=== PATIENT | female | born 1995 | race Caucasian/White ===

== ENCOUNTER 2023-08-06 10:14 | Outpatient (CLI) | payer BC, SELFPAY ==
--- NOTE | 2023-08-06 10:15 | CRLHL7_ITS ---
For Patients: As a result of the Cures Act, medical imaging exams and procedure reports are released immediately into your electronic medical record. You may view this report before your referring provider. If you have questions, please contact your health care provider. INDICATION: Bleeding in early , evaluate for viability COMPARISON: None TECHNIQUE: Packer-scale and color Doppler of the uterus and ovaries from a transvaginal approach. Transvaginal ultrasound was necessary for better visualization of the uterine contents. FINDINGS: Last menstrual period: 06/10/2023 Estimated gestational age: 8 weeks 1 day Normal uterine size and position. No intrauterine gestational sac. No endometrial heterogeneity or thickening. No endometrial mass or endometrial vascularity. Endometrium measures 7 millimeters in double thickness. No ovarian or adnexal mass or cyst. The right ovary measures 3.9 x 2.6 x 2.5 centimeters and has a small corpus luteal cyst. The left ovary measures 3.6 x 1.7 x 1.9 centimeters. No pelvic free fluid. IMPRESSION: No findings of an intrauterine or ectopic gestation. No findings of retained products of conception. Correlate with beta HCG and follow-up accordingly. Dictated by Yani Hess MD @ 08/06/2023 10:54:12 AM (Electronically Signed)
== END 2023-08-06 10:15 | disposition home or self-care (01) ==
PROVIDERS: PCP Registered Nurse; Visit Provider Obstetrics & Gynecology
DX: O20.9 Hemorrhage in early pregnancy, unspecified (principal); Z3A.08 8 weeks gestation of pregnancy
CPT/HCPCS: 76817; 84702; 86850; 86900; 86901

== ENCOUNTER 2023-08-13 08:34 | Outpatient (CLI) | payer BC, SELFPAY | END 2023-08-13 08:35 | disposition home or self-care (01) | LOC: NFLDREF 08-16 08:31 | PROVIDERS: PCP Registered Nurse; Referring Provider Registered Nurse; Visit Provider Registered Nurse | DX: O20.0 Threatened abortion (principal) | CPT/HCPCS: 84702 ==

== ENCOUNTER 2023-11-19 09:56 | Outpatient (CLI) | payer OTHER, SELFPAY | END 2023-11-19 09:57 | disposition home or self-care (01) | LOC: FRMREF 09:57 | PROVIDERS: PCP Registered Nurse; Visit Provider Obstetrics & Gynecology | DX: O20.9 Hemorrhage in early pregnancy, unspecified (principal) | CPT/HCPCS: 84702 ==

== ENCOUNTER 2023-11-21 08:13 | Outpatient (CLI) | payer OTHER, SELFPAY | END 2023-11-21 08:14 | disposition home or self-care (01) | LOC: NFLDREF 11-22 08:44 | PROVIDERS: PCP Registered Nurse; Referring Provider Registered Nurse; Visit Provider Obstetrics & Gynecology | DX: O20.9 Hemorrhage in early pregnancy, unspecified (principal) | CPT/HCPCS: 84702 ==

== ENCOUNTER 2023-12-17 10:30 | Outpatient (CLI) | payer OTHER, SELFPAY | END 2023-12-17 10:31 | disposition home or self-care (01) | PROVIDERS: Visit Provider Physician Assistant | DX: N96 Recurrent pregnancy loss (principal) | CPT/HCPCS: 83001; 84702; 85520; 85525; 85598; 85610; 85613; 85670; 86147 ==

== ENCOUNTER 2024-01-17 08:00 | Outpatient (CLI) | payer OTHER, SELFPAY | END 2024-01-17 08:01 | disposition home or self-care (01) | LOC: NFLDREF 14:34 | PROVIDERS: Visit Provider Physician Assistant | DX: N96 Recurrent pregnancy loss (principal) | CPT/HCPCS: 84443 ==

== ENCOUNTER 2024-04-10 08:09 | Outpatient (CLI) | payer OTHER, SELFPAY ==
--- NOTE | 2024-04-10 08:15 | CRLHL7_ITS ---
For Patients: As a result of the Century Cures Act, medical imaging exams and procedure reports are released immediately into your electronic medical record. You may view this report before your referring provider. If you have questions, please contact your health care provider. INDICATION: First trimester scan, establish dates. TECHNIQUE: Real-time guadarrama-scale imaging of the pelvis was performed. FINDINGS: Sonographic imaging demonstrates a single living intrauterine gestation. The embryo demonstrates a regular cardiac rate measuring 152 beats per minute. The embryo`s crown-rump length measurement of 1.4 cm corresponds to a gestational age of 7 weeks 5 days with a sonographic due date of 11/22/2024 . There is a normal-appearing yolk sac. Small subchorionic hemorrhage measuring 0.9 x 0.8 x 0.6 centimeters. IMPRESSION: Normal first trimester OB ultrasound exam. Gestational age calculated at 7 weeks 5 days with a sonographic due date of 11/22/2024. Small subchorionic hemorrhage measuring 0.9 cm. Dictated by Anna Tarango MD @ 04/11/2024 9:13:16 AM (Electronically Signed)
== END 2024-04-10 08:10 | disposition home or self-care (01) ==
LOC: US 08:12
PROVIDERS: Visit Provider Physician Assistant
DX: Z34.91 Encounter for supervision of normal pregnancy, unspecified, first trimester (principal); O20.9 Hemorrhage in early pregnancy, unspecified; Z3A.01 Less than 8 weeks gestation of pregnancy
CPT/HCPCS: 76817

== ENCOUNTER 2024-04-10 09:24 | Outpatient (CLI) | payer OTHER, SELFPAY ==
[2024-04-10 13:29] LABS: Chlamydia DNA Amplified* NOT DETECTED (No Detected); GC DNA Amplified* NOT DETECTED (No Detected)
== END 2024-04-10 09:25 | disposition home or self-care (01) ==
PROVIDERS: Visit Provider Physician Assistant
DX: Z34.91 Encounter for supervision of normal pregnancy, unspecified, first trimester (principal); Z3A.08 8 weeks gestation of pregnancy
CPT/HCPCS: 83020; 83021; 84443; 85660; 86592; 86703; 86704; 86706; 86762; 86787; 86803; 86850; 86900; 86901; 87086; 87340; 87491; 87591

== ENCOUNTER 2024-06-05 09:08 | Outpatient (CLI) | payer OTHER, SELFPAY | END 2024-06-05 09:09 | disposition home or self-care (01) | LOC: NFLDREF 09:10 | PROVIDERS: Visit Provider Advanced Practice Midwife | DX: Z34.92 Encounter for supervision of normal pregnancy, unspecified, second trimester (principal); Z3A.15 15 weeks gestation of pregnancy | CPT/HCPCS: 84443 ==

== ENCOUNTER 2024-07-03 08:58 | Outpatient (CLI) | payer OTHER, SELFPAY ==
--- NOTE | 2024-07-03 09:15 | CRLHL7_ITS ---
For Patients: As a result of the Century Cures Act, medical imaging exams and procedure reports are released immediately into your electronic medical record. You may view this report before your referring provider. If you have questions, please contact your health care provider. OB ULTRASOUND SURVEY RAFAT by US: 11/22/2024. GA: 19 w, 5 d. INDICATION: anatomy. TECHNIQUE: Real time grayscale imaging of the fetus was performed. Evaluate anatomy. Transabdominal. position: Vertex. Cervix: Visualized. Technique: Transabdominal. Length of closed cervix: 4.3 cm. Placenta/cord: Anterior. Technique: Transabdominal. Placenta tip to internal OS: 6.7 cm. Umbilical Cord: 3-vessel cord. Placenta insertion: Central. Amniotic Fluid: 3.5cm SDP (greater than/equal to: 2- less than 8 cm). SURVEY: Observed Structures. Calvarium/Spine: Cerebellum: 2.0 cm, 20 w 5 d. Cisterna Magna: 3.1 mm. Nuchal Fold: 3.9 mm. Lateral Ventricle: 5.2 mm. CSP: Yes. Midline Falx: Yes. Choroid Plexus: Yes. Spine: Yes. Abdomen: Stomach: Yes. Abd Cord Insertion: Yes. Urinary Bladder: Yes. Kidneys: Yes. Diaphragm: Yes. Face: Nose/lips: Yes. Orbital view: Yes. Profile: Yes. Limbs: Upper Extremities: Yes. Lower Extremities: Yes. Hands: Yes. Feet: Yes. Vascular: 4-Chamber Heart: Yes. LVOT: Yes. RVOT: Yes. 3VV: Yes. 3VTV: Yes. BPD: 4.5 cm. 19 w, 5 d, 48.0 percent. HC: 17.4 cm. 19 w, 6 d, 52.7 percent. AC: 15.0 cm. 20 w, 2 d, 62.6 percent. FL: 3.1 cm. 19 w, 5 d, 41.2 percent. FL/AC ratio: 20.81 percent. HC/AC ratio: 1.16. heart rate: 139 bpm. age by this US: 20 w, 0 d. RAFAT by this US: 11/20/2024. EFW: 54491 g. Weight: 0 lbs, 11 oz. Percentile by RAFAT: 60.3 percent. IMPRESSION: 1. Concordance of clinical and sonographic dating. 2. Normal anatomic survey. Bright Lundy M.D. Diagnostic Radiologist [email or web address] ODALYS/[email or web address]/Dictated by: Bright Lundy MD @ 07/03/2024 12:15:00 PM (Electronically Signed)
== END 2024-07-03 08:59 | disposition home or self-care (01) ==
LOC: US 08:59
PROVIDERS: Visit Provider Advanced Practice Midwife
DX: Z34.92 Encounter for supervision of normal pregnancy, unspecified, second trimester (principal); Z3A.19 19 weeks gestation of pregnancy
CPT/HCPCS: 76805

== ENCOUNTER 2024-07-21 11:00 | Outpatient (RCR) | payer OTHER, SELFPAY | END 2024-11-18 23:59 | disposition home or self-care (01) | PROVIDERS: Visit Provider Advanced Practice Midwife | DX: O26.892 Other specified pregnancy related conditions, second trimester (principal); M54.50 Low back pain, unspecified; R10.2 Pelvic and perineal pain; Z51.89 Encounter for other specified aftercare | CPT/HCPCS: 97112; 97140; 97161 ==

== ENCOUNTER 2024-08-23 19:19 | Outpatient (CLI) | payer OTHER, SELFPAY ==
[2024-08-23 19:39] VITALS: BP 107/63; PULSE 96; RESP 16; TEMP 37.2
[2024-08-23 20:11] LABS: Appearance Urine Clear (Clear)
[2024-08-23 20:47] LABS: Trichomonas No Trichomonas Seen (None Seen)
--- NOTE | 2024-08-23 21:23 | PM.OBLDTN ---
OB - Triage/Final Diagnosis Visit Information Time Seen by Provider: 21:15 Date of evaluation: 08/23/24 Narrative: The patient is a 29 year old 3 para 0 at 27.0 weeks gestation by first trimester ultrasound, who presents with an episode of red bleeding while wiping today. She did not have any gush of blood only streaks of blood noted on toilet paper. She reported some frequency with urination and occasional cramping sensations but does not report anything regular or increasing in intensity. She reports active movement. A UA and wet prep were collected and are negative for infection, there are trace ketones in her urine. She reports she spent the day at her parents campsite did not do anything strenuous, denies abdominal trauma or falls. She denies recent intercourse, reports about a week ago last. She has a history of miscarriage which is making her feel more anxious about the bleeding. A speculum exam was done with informed consent, there was no blood seen in the vagina, cervix appears closed without any evidence of polyps or sores. Normal appearing external female genitalia, skin intact. A cervical exam was then done and cervix is long thick and closed. Her blood type is O+. EFM shows Category I tracing without contractions. Abdomen palpates soft. She states she has her next appointment on Saturday, she was instructed to keep that appointment. Precautions reviewed for decreased movement, increasing abdominal pain, contractions, pressure, or return of bleeding should any of this occur she should return for evaluation. Reason for evaluation: other Evaluation Cervical dilation (cm): 0 Cervical effacement (%): 0 Laboratory results: Laboratory Tests 08/23/24 08/23/24 Range/Units 19:55 19:40 Urine Color Yellow (Yellow) Urine Appearance Clear (Clear) Urine pH 6.0 (5.0-8.5) Ur Specific [place] <= 1.005 (1.000-1.030) Urine Protein Negative (Negative) Urine Glucose (UA) Negative (Negative) Urine Ketones Trace A (Negative) Urine Blood Negative (Negative) Urine Nitrite Negative (Negative) Urine Bilirubin Negative (Negative) Urine Urobilinogen 0.2 (0.2-1.0) Ur Leukocyte Esterase Negative (Negative) Vaginal Trichomonas No Trichomonas Seen (None Seen) Vaginal Yeast No Yeast Seen (None Seen) Vaginal Clue Cells No Clue Cells Seen (None Seen) Vital signs: Vital Signs - 24 hr 08/23/24 19:39 08/23/24 19:39 Temperature 98.9 F Pulse Rate 96 Respiratory Rate 16 Blood Pressure 107/63 Fetus (Single) Heart Rate Baseline: 140 Canteen Manager Variability: Moderate (6-25) Monitor Accelerations: Present Monitor Decelerations: None Station: -4 Final Diagnosis (1) Vaginal bleeding in : Status: Acute
--- NOTE | 2024-08-23 21:35 | PC.OBNST ---
NST Note NST Note Start: 08/23/24 19:23 Freq: ONCE Status: Active Protocol: Document 08/23/24 21:34 CLIFF (Rec: 08/23/24 21:35 CLIFF [id number]) NST Note 3 Para (# of births) 0 EDC 11/22/24 Gestational Age In 27 Weeks & 0 Days Weeks & Days Patient Presented Other with Complaint(s) of Other Complaints Bleeding Reactive Yes Appropriate for Yes Gestational Age MYRON Nichole RN Date 08/23/24 Reactive Yes Appropriate for Yes Gestational Age MYRON Lizarraga CNM Date 08/23/24 OB NST charge Yes Complete NST Note Yes via Write Note The provider's electronic signature indicates the NST is reactive/appropriate for gestational age. *Note to provider: If an addendum is required, open the patient's chart and click on the note under the Nurse/Allied Health tab.
== END 2024-08-23 21:35 | disposition home or self-care (01) ==
LOC: OB OUT 19:21 → OB 19:25
PROVIDERS: Visit Provider Advanced Practice Midwife
DX: O26.92 Pregnancy related conditions, unspecified, second trimester (principal); Z3A.27 27 weeks gestation of pregnancy
CPT/HCPCS: 59025; 81003; 87210; G0463

== ENCOUNTER 2024-08-28 13:30 | Outpatient (CLI) | payer OTHER, SELFPAY | END 2024-08-28 13:31 | disposition home or self-care (01) | LOC: NFLDREF 09-02 01:53 | PROVIDERS: Visit Provider Advanced Practice Midwife | DX: Z34.82 Encounter for supervision of other normal pregnancy, second trimester (principal); E03.8 Other specified hypothyroidism | CPT/HCPCS: 84443; 86592 ==

== ENCOUNTER 2024-10-23 13:04 | Outpatient (CLI) | payer OTHER, SELFPAY ==
[2024-10-24 14:17] LABS: Strep B DNA Probe Negative (Negative)
[2024-10-24 14:38] LABS: Strep B Susceptibility Needed? No
== END 2024-10-23 13:05 | disposition home or self-care (01) ==
LOC: NFLDREF 13:04
PROVIDERS: Visit Provider Advanced Practice Midwife
DX: Z34.93 Encounter for supervision of normal pregnancy, unspecified, third trimester (principal); Z3A.35 35 weeks gestation of pregnancy
CPT/HCPCS: 87081; 87653

== ENCOUNTER 2024-11-27 10:41 | Outpatient (CLI) | payer OTHER, SELFPAY ==
--- NOTE | 2024-11-27 10:45 | CRLHL7_ITS ---
For Patients: As a result of the Cures Act, medical imaging exams and procedure reports are released immediately into your electronic medical record. You may view this report before your referring provider. If you have questions, please contact your health care provider. OB ULTRASOUND RAFAT by US: 11/22/2024. GA: 40 w, 5 d. Single. Comparison: anatomy 07/03/2024. INDICATION: BIOPHYSICAL PROFILE SCORE for post-dates. TECHNIQUE: Real time grayscale imaging of the fetus was performed. Transabdominal. CERVIX: Not visualized. POSITIONING: Vertex. AMNIOTIC FLUID: 5.5 cm. SDP (N: greater than 2 x 1 cm) BIOPHYSICAL PROFILE: 2: Gross body movements 2: tone 2: Respiratory activity 2: Amniotic fluid SDP (N: greater than 2 x 1 cm) 8/8: Total score PLACENTA: Technique: Transabdominal. PLACENTA POSITION: Anterior. DOPPLER: heart rate: 147 bpm. IMPRESSION: Normal biophysical profile score 8/8. Bright Lundy M.D. Diagnostic Radiologist [email or web address] ODALYS/[email or web address]/Dictated by: Bright Lundy MD @ 11/27/2024 12:00:00 PM (Electronically Signed)
== END 2024-11-27 10:42 | disposition home or self-care (01) ==
LOC: US 10:42
PROVIDERS: Visit Provider Advanced Practice Midwife
DX: O48.0 Post-term pregnancy (principal); Z3A.40 40 weeks gestation of pregnancy; E03.8 Other specified hypothyroidism; O72.1 Other immediate postpartum hemorrhage; R93.89 Abnormal findings on diagnostic imaging of other specified body structures
CPT/HCPCS: 76819

== ENCOUNTER 2024-11-27 13:10 | Outpatient (CLI) | payer OTHER, SELFPAY | END 2024-11-27 13:11 | disposition home or self-care (01) | LOC: NFLDREF 11-30 18:25 | PROVIDERS: Visit Provider Advanced Practice Midwife | DX: Z34.93 Encounter for supervision of normal pregnancy, unspecified, third trimester (principal); O26.899 Other specified pregnancy related conditions, unspecified trimester; N89.8 Other specified noninflammatory disorders of vagina; Z34.83 Encounter for supervision of other normal pregnancy, third trimester; O48.0 Post-term pregnancy; Z3A.40 40 weeks gestation of pregnancy; E03.8 Other specified hypothyroidism | CPT/HCPCS: 87081; 87653 ==

== ENCOUNTER 2024-11-27 23:14 | Inpatient (IN) | payer OTHER, SELFPAY ==
[2024-11-27 22:17] VITALS: BP 128/78; PULSE 75; PULSE 78; O2SAT 99
[2024-11-27 22:18] VITALS: RESP 18; TEMP 36.5
[2024-11-27 23:31] VITALS: BMI 32.4
[2024-11-28] VITALS (92 sets, daily range): BP systolic 97–134; BP diastolic 51–83; PULSE 74–193; RESP 15–22; TEMP 36.4–37.2; O2SAT 94–100
[2024-11-28] MEDS: LACTATED RINGERS 1000 ML 1,000 ML IV ×2 (01:52→09:32)
--- NOTE | 2024-11-28 02:00 | P.LDBA_ITS ---
Subjective History of Present Illness Date Seen: 11/28/24 Narrative: Jazmin is being admitted to Labor and Delivery for labor with SROM of clear fluid on arrival to unit. She is a 29 year old at 40.6 weeks gestation. Her full history and physical was dictated by Liyah Maria CNM on 10/30/2024. Please see this for details. Had membrane sweep in clinic today and has been contraction since that time with slow progression to regular frequent contractions. Specific Issues/Plans Partner: Minesh H&P: completed on 10/30/2024 by Liyah Maria CNM # history recurrent loss x2 Negative workup # Subclinical hypothyroid, on levothyroxine for fertility. TSH in September had been 3.31. Initiated levothyroxine 25 mcg NOB TSH: 1.74 2nd Trimester TSH: 1.78 3rd trimester TSH: 1.230 # obesity, BMI 30.2. Hemoglobin A1c:4.8% Aspirin 81 mg # uncle with muscular dystrophy #generalized rash-assume allergic, triam given; improved after eliminating dairy in diet Imaging: Vaccinations: COVID: Discussed, declined Flu: Discussed, declined Tdap: 09/11/24 RSV: [] 32 week mental health: [] Last pap: 10/14/23, NIL/+HPV other. Repeat Pap PP Comments: ? OB - Problem Based A/P Additional Plan (1) 40 weeks gestation of : Status: Acute (2) Pain during labor: Status: Acute Plan Assessment:?? at 40.6 weeks gestation?? GBS negative? Patient is coping well with challenges of labor.?? Labor type:Spontaneous, Early labor? Category 1 FHR pattern.? complicated by: # history recurrent loss x2 # Subclinical hypothyroid, on levothyroxine for fertility. # obesity, BMI 30.2 # family history of muscular dystrophy(uncle) Plan:?? * ?Admit to L & D? * IV access: SL * Monitoring per policy: intermittent?until epidural placement * Candidate for analgesia of choice.? Planning epidural for pain management * Expectant management at this time ? * Patient encouraged to reposition and ambulate to promote physiologic labor and . * Anticipate Delivery/Labor/Induction Plan Plan: expectant management OB Exam Physical Exam Vital signs: Temp Pulse Resp BP Pulse Ox 98.2 F 89 18 108/68 99 11/28/24 01:48 11/28/24 00:24 11/28/24 00:24 11/28/24 00:24 11/27/24 22:17 Narrative: Vitals Reviewed Constitutional:? Alert and oriented x3 HEENT:? Normocephalic, atraumatic Neck:? Supple Lungs:? Clear to auscultation bilaterally Heart:? Regular rate and rhythm, no murmur, rub or gallop Abdomen:? Soft, nontender, and gravid. Vertex by Dave's, confirmed with cervical exam per RN. Was vertex in clinic today with exam. Extremities:? No edema or erythema Cervix: 3 cm/60%/-1 station/vertex by RN NST: 120 bpm/mod variability/+accelerations/-decelerations/ mod contractions, now palpate strong Detailed Labor and Delivery Exam Patient Gravid: yes
[2024-11-28 02:02] LABS: Hematocrit* 45.2 % (33.0-51.0); Hemoglobin* 15.5 gm/dL (12.0-16.0); Immature Granulocytes Pct Auto 0.9 %; Mean Corpuscular HGB Conc 34 gm/dL (32-36); Mean Corpuscular Hemoglobin 30 pg (26-34); Mean Corpuscular Volume 89 fL (80-100); RDW Coefficient of Variation % 13.3 % (11.5-15.5); Red Blood Count* 5.11 m/uL (4.00-5.20); White Blood Count* 19.38 K/uL (4.50-11.00)
[2024-11-28 02:09] LABS: Immature Granulocytes Abs Auto 0.20 K/uL (0.00-0.30); Lymphocytes Absolute Auto 1.30 K/uL (0.90-2.90)
[2024-11-28 02:10] LABS: Slide Review Reflex No
--- NOTE | 2024-11-28 02:11 | PM.OBPNL ---
Subjective Date Seen: 11/28/24 Narrative: ?Jazmin is coping well with labor pain/contractions. ?Minesh is with her for support. ?She is using breathing, relaxation and the birthing ball for comfort and pain management at this time. She has requested an epidural for pain managment and is now comfortable with this in place. ? Objective Exam: VSS, afebrile General Appearance:? Calm, cooperative. ?No acute distress. ? Psychiatric Exam: Alert and oriented, appropriate affect Abdomen: Gravid Ctx: ?Q 2-4 min apart. ? ?Moderate ? FHTs: ?Baseline: 140. ? ? Variability: moderate. ?Accels: -. ? ?Decels: ?-. SVE: 360/-1 Membranes: ?SROM clear fluid at 2230 on 11/27/24 Vital Signs: Last Vital Signs Temp 98.2 F 11/28/24 01:48 Pulse 89 11/28/24 00:24 Resp 18 11/28/24 00:24 BP 108/68 11/28/24 00:24 Pulse Ox 99 11/27/24 22:17 Plan Plan: Assessment:?? at 40.6 weeks gestation?? GBS neg Patient is coping well with challenges of labor.?? Labor type: Spontaneous, Early labor? Category 2 FHR pattern.? complicated by: # history recurrent loss x2 # Subclinical hypothyroid, on levothyroxine for fertility. # obesity, BMI 30.2 # family history of muscular dystrophy(uncle) Labor complicated by: none? Plan:?? Expectant management Continue with routine intrapartum cares as ordered.?? Patient encouraged to move and change positions to promote physiologic labor and .??RN to assist with position changes as needed. Epidural infusing per anesthesia Anticipate progress to NVD. ?
[2024-11-28] MEDS: BUPIVACAINE 0.25% PF 10 ML 10 ML ML EPIDURAL (02:36)
[2024-11-28] MEDS: LACTATED RINGERS 1000 ML 1,000 ML 125 ML IV ×3 (02:36→14:32)
[2024-11-28] MEDS: ROPIVACAINE 0.2% 100 ml 100 ML 12 MG EPIDURAL ×2 (02:37→17:42)
--- NOTE | 2024-11-28 02:57 | PM.ANBPRC ---
[facility] Medical History Acromioclavicular joint separation ?S43.109A - Unspecified dislocation of unspecified acromioclavicular joint, initial encounter (ICD-10) Tibia fracture ?S82.209A - Unspecified fracture of shaft of unspecified tibia, initial encounter for closed fracture (ICD-10) Concussion ?S06.0XAA - Concussion with loss of consciousness status unknown, initial encounter (ICD-10) Family History Maternal Grandmother Breast cancer Maternal Grandfather Colon cancer Father Liver cancer High blood pressure Mother High cholesterol Social History Narrative: SOCIAL HISTORY: Occupation: Employed in [employer]. Marital status: . Gnosticist/cultural needs: no. Chemical or radiation exposure: no. Pre- tobacco use: no. Pre- alcohol use: no. Current tobacco use: no. Current alcohol use: no. Recreational drug use: no. Dietary restrictions: no. Blood transfusion acceptable in an emergency: yes. PSYCHOSOCIAL HISTORY: History of depression or currently depressed: no. Current physical, emotional, or sexual mistreatment: no. Problems that will make it hard to make it to appointments: no. What is your current living situation?: I presently have a place to live Problems where you live: no known problems In the past 12 months, utilities in danger of being shut off: no In past 12 months, lack of transportation kept you from medical appts, meetings, work, or getting things needed for daily living: no In the past 12 mos, have been you worried that your food would run out before you had money to buy more?: never true In the past 12 mos, the food you bought just didn't last and you didn't have money to buy more?: never true Smoking Status: Never smoker How often does anyone, including family, friends and others, physically hurt you: never How often does anyone, including family, friends and others, insult or talk down to you: never How often does anyone, including family, friends and others, threaten you with harm: never How often does anyone, including family, friends and others, scream or curse at you: never Meds Home Medications and Allergies Home Medications ?Medication ?Instructions ?Recorded ?Confirmed ?Type docosahexaenoic acid 200 mg mg PO 08/06/23 11/27/24 History capsule ( DHA) calcium-magnesium 750 mg-465 mg tab PO 04/10/24 11/27/24 History tablet cholecalciferol (vitamin D3) 125 125 mcg PO QDAY 04/10/24 11/27/24 History mcg (5,000 unit) capsule omega-3 fatty acids 1,250 mg 1,250 mg PO QDAY 04/10/24 11/27/24 History capsule aspirin 81 mg tablet,delayed 81 mg PO QDAY 06/05/24 11/27/24 History release levothyroxine 25 mcg tablet 25 mcg PO QDAY #90 tabs 08/31/24 11/27/24 Rx (Synthroid) magnesium glycinate 100 mg (as 100 mg PO QDAY 09/25/24 11/27/24 History glycinate) tablet triamcinolone acetonide 0.1 % 1 applic topical BID PRN 11/13/24 11/27/24 History topical cream Allergies Allergy/AdvReac Type Severity Reaction Status Date / Time bacitracin (From Neosporin Allergy Intermediate Blister Verified 11/27/24 12:52 ([id number])) neomycin (From Neosporin Allergy Intermediate Blister Verified 11/27/24 12:52 ([id number])) polymyxin B (From Neosporin Allergy Intermediate Blister Verified 11/27/24 12:52 ([id number])) Milk Containing Products AdvReac Severe Rash Verified 11/27/24 12:52 (Dairy) berries Allergy Severe Anaphylaxis Uncoded 11/27/24 12:52 Results Labs Labs: Laboratory Results - last 24 hr 11/27/24 01:50 WBC 19.38 H RBC 5.11 Hgb 15.5 Hct 45.2 MCV 89 MCH 30 MCHC 34 RDW Coeff of Sumi 13.3 Plt Count 173 Neut % (Auto) 88.8 H Lymph % (Auto) 6.5 L Story % (Auto) 3.6 Eos % (Auto) 0.1 Baso % (Auto) 0.1 Neut # (Auto) 17.20 H Lymph # (Auto) 1.30 Story # (Auto) 0.70 Eos # (Auto) 0.00 Baso # (Auto) 0.00 Abs Immat Gran (auto) 0.20 Imm/Tot Granulo (auto) 0.9 Vital Signs Vital Signs: Last Vital Signs Temp 98.2 F 11/28/24 01:48 Pulse 95 11/28/24 02:56 Resp 18 11/28/24 00:24 BP 118/60 11/28/24 02:56 Pulse Ox 99 11/28/24 02:53 Weight: 88.451 kg Height: 165.1 cm Anesthesia Procedures Epidural Insertion Patient Location: OB Start Time: 02:00 Stop Time: 03:00 Start Date: 11/28/24 Stop Date: 11/28/24 Reason for Block: procedure for pain Patient Position: sitting Performed By: Jed Coulter Preanesthetic Checklist: IV checked, risks and benefits discussed, surgical consent, monitors and equipment checked, pre-op evaluation, timeout performed and anesthesia consent Prep: chlorhexidine gluconate Monitoring: blood pressure monitoring, continuous pulse oximetry and heart rate Approach: midline Vertebral Space: lumbar (1-5) Epidural Technique: AMOR saline Needle Type: Tuohy needle Injection Technique: continuous catheter Needle gauge: 17 Needle Length (cm): 10 cm Needle Insertion Depth (cm): 6 Catheter Gauge: 19 Catheter Type: multi-orifice Catheter at skin depth (cm): 12 Test Dose Result: negative and lidocaine 1.5% with epinephrine 1 to 200,000
[2024-11-28] MEDS: PHENYLEPHRINE 100 MCG/ML SYRINGE IVP (06:50)
[2024-11-28] MEDS: ePHEDrine sulfate 5 MG/ML inj 10 MG IVP (07:08)
--- NOTE | 2024-11-28 08:27 | PM.OBPNL ---
Subjective Date Seen: 12/23/24 Narrative: Jazmin is a 29 yo at 40 6/7 weeks admitted last evening for KIRK with SROM of clear fluid on arrival to unit at 2200. She is utilizing an epidural for pain relief and has been able to rest some this morning. Her contractions since epidural placement have spaced out. Specific Issues/Plans Partner: Minesh H&P: completed on 10/30/2024 by Liyah Maria CNM # history recurrent loss x2 Negative workup # Subclinical hypothyroid, on levothyroxine for fertility. TSH in September had been 3.31. Initiated levothyroxine 25 mcg NOB TSH: 1.74 2nd Trimester TSH: 1.78 3rd trimester TSH: 1.230 # obesity, BMI 30.2. Hemoglobin A1c:4.8% Aspirin 81 mg # uncle with muscular dystrophy #generalized rash-assume allergic, triam given; improved after eliminating dairy in diet Objective Exam: Objective: Constitutional: Alert and oriented x3, no distress, coping well Vital signs stable, see nurse documentation Abdomen: gravid, contractions palpate moderate with contractions and soft between Cervix: 4 cm/70%/-1 station/vertex NST: 150 bpm/moderate variability/15x15 accelerations/no decelerations/contractions 4-7 minutes apart, lasting 90-120 seconds Vital Signs: Last Vital Signs Temp 97.9 F 11/28/24 07:11 Pulse 95 11/28/24 08:05 Resp 15 11/28/24 07:11 BP 108/60 11/28/24 08:05 Pulse Ox 98 11/28/24 03:51 Plan Plan: Assessment:?? 29 yo at 40.6 weeks gestation?? GBS negative? Patient is coping well with challenges of labor.?? Labor type: Spontaneous, Early labor? Category 1 FHR pattern.? ROM at 2200 complicated by: # history recurrent loss x2 # Subclinical hypothyroid, on levothyroxine for fertility. # obesity, BMI 30.2 # family history of muscular dystrophy(uncle) Plan:?? Admit to L & D? IV access: SL Monitoring per policy: continuous with epidural placement Candidate for analgesia of choice, will continue with epidural for pain management Discussed augmentation with IV pitocin. Questions answered. Patient agreeable to plan. Patient encouraged to reposition to promote physiologic labor and . Anticipate
[2024-11-28] MEDS: OXYTOCIN 30 unit/500 ML in NS 30 UNIT/500 ML BAG IVPB (08:30)
--- NOTE | 2024-11-28 14:27 | P.OBPN_ITS ---
Subjective Time Seen by Provider: 14:00 Date Seen: 11/28/24 Narrative: Jazmin is a 29 yo at 40 6/7 weeks admitted last evening for KIRK with SROM of clear fluid on arrival to unit at 2200. She is utilizing an epidural for pain relief and has been able to rest some this morning. Her contractions since epidural placement had spaced out. Pitocin was started about 0830 this morning. She is resting comfortably, using peanut ball, with partner at bedside. Jazmin notices her contractions but they are not painful to her. Objective Exam: Objective: Constitutional: Alert and oriented x3, coping well Vital signs stable, see nurse documentation Abdomen: gravid, contractions palpate moderate and soft between Cervix: 7 cm/90%/+1 station/vertex NST: 140 bpm/ moderate variability/accelerations present/ no decelerations/ q 2- 3 contractions Vital Signs: Last Vital Signs Temp 97.6 F 11/28/24 14:00 Pulse 94 11/28/24 14:03 Resp 18 11/28/24 14:00 BP 122/77 11/28/24 14:03 Pulse Ox 98 11/28/24 09:06 Contractions Contraction pattern: Regular Contraction intensity: Moderate Pitocin Rate (mU/min): 8 Assessment Assessment: active labor Plan Plan: Plan Plan: Assessment:?? 29 yo at 40.6 weeks gestation?? GBS negative? Patient is coping well with challenges of labor.?? Labor type: Spontaneous, active labor? Category 1 FHR pattern.? ROM at 2200 complicated by: # history recurrent loss x2 # Subclinical hypothyroid, on levothyroxine for fertility. # obesity, BMI 30.2 # family history of muscular dystrophy(uncle) Plan:?? Admit to L & D? IV access Monitoring per policy: continuous with epidural placement Candidate for analgesia of choice, will continue with epidural for pain management Started augmentation with IV pitocin at 0830. Continue with pitocin increase per protocol. Patient encouraged to reposition to promote physiologic labor and . Anticipate I,?Yani Ennis, BAYLEE, SHANNON, was present for visit and have reviewed and agree with documentation by the Certified Nurse Midwifery Student.
--- NOTE | 2024-11-28 16:16 | PM.OBPNL ---
Subjective Time Seen by Provider: 16:00 Date Seen: 11/28/24 Narrative: Jazmin is a 29 yo at 40 6/7 weeks admitted last evening for KIRK with SROM of clear fluid on arrival to unit at 2200. She is utilizing an epidural for pain relief and has been able to rest some this morning. RN is assisting with frequent position changes. She is feeling increased pressure in right upper abdomen. Baby's bottom is palpated there. Partner at bedside. Objective Vital Signs: Last Vital Signs Temp 98.5 F 11/28/24 14:51 Pulse 75 11/28/24 15:34 Resp 22 11/28/24 14:51 BP 108/58 L 11/28/24 15:34 Pulse Ox 98 11/28/24 09:06 Pelvic Exam Dilation (cm): 8 Effacement (%): 90 Station: +1 Contractions Monitor mode: External Contraction Frequency: 2-6min. 80-90 seconds Contraction pattern: Regular Contraction intensity: Moderate Pitocin Rate (mU/min): 10 Assessment Assessment: active labor Station: +1 Amniotic Membrane Status: SROM Status: Category ll Heart Rate Baseline: 155 Retirement Variability: Minimal (3-5) Monitor Accelerations: Present Monitor Decelerations: None Maternal Status: feeling more uncomfortable Plan Plan: Assessment Assessment: active labor 29 yo at 40.6 weeks gestation?? GBS negative? Patient is coping well with challenges of labor.?? Labor type: Spontaneous, active labor? Category 2 FHR pattern.? ROM at 2200 complicated by: # history recurrent loss x2 # Subclinical hypothyroid, on levothyroxine for fertility. # obesity, BMI 30.2 # family history of muscular dystrophy(uncle) Plan:?? Admit to L & D? IV access Monitoring per policy: continuous with epidural placement Candidate for analgesia of choice, will continue with epidural for pain management. Bed laid flat within patient in slight tilt to bring up epidural coverage. Will consult anesthesia if unsuccessful. Started augmentation with IV pitocin at 0830. Continue with pitocin increase per protocol. Patient encouraged to reposition to promote physiologic labor and . Anticipate I,?Yani Ennis, BAYLEE, SHANNON, was present for visit and have reviewed and agree with documentation by the Certified Nurse Midwifery Student.
[2024-11-28] MEDS: LACTATED RINGERS 1000 ML 1,000 ML 1125 ML IV ×2 (18:36→20:00)
--- NOTE | 2024-11-28 19:32 | PM.OBPNL ---
Subjective Time Seen by Provider: 19:00 Date Seen: 11/28/24 Narrative: Jazmin is a 29 yo at 40 6/7 weeks admitted last evening for KIRK with SROM of clear fluid on arrival to unit at 2200. She is utilizing an epidural for pain relief but is feeling increased vaginal pressure and having a more difficult time coping. SHANNON, DANIEL, and RN assisting with frequent position changes. DANIEL Zhang Objective Exam: Objective: Constitutional: Alert and oriented x3, mild to moderate distress Vital signs stable, see nurse documentation Abdomen: gravid, contractions palpate moderate and soft between Cervix: 8 cm/100%/+2 station/vertex. ascynclitic Vital Signs: Last Vital Signs Temp 98.7 F 11/28/24 19:25 Pulse 90 11/28/24 19:03 Resp 22 11/28/24 17:58 BP 120/65 11/28/24 19:03 Pulse Ox 98 11/28/24 09:06 Pelvic Exam Dilation (cm): 8 Effacement (%): 100 Station: +2 Contractions Monitor mode: External Contraction Frequency: 2-3min. 70-90sec Contraction pattern: Regular Contraction intensity: Moderate Pitocin Rate (mU/min): 6 Assessment Assessment: active labor Station: +2 (caput to +3) Amniotic Membrane Status: SROM Status: Category ll Heart Rate Baseline: 160 Embedded Software Developer Variability: Minimal (3-5) Monitor Accelerations: Absent Monitor Decelerations: Early Tracing Comments: Overall minimal variability since 1700. Couple minutes of moderate variability every 15-30 minutes Labor Progress: protracted active labor Maternal Status: Getting more fatigued. Open to trying anything but increasing difficulty making decisions. Plan Plan: Assessment Assessment: active labor 29 yo at 40.6 weeks gestation?? GBS negative? Patient is having a harder time coping with challenges of labor.?? Labor type: Spontaneous, active labor? Category 2 FHR pattern.? ROM at 2200, now >18 hours complicated by: # history recurrent loss x2 # Subclinical hypothyroid, on levothyroxine for fertility. # obesity, BMI 30.2 # family history of muscular dystrophy(uncle) Plan:?? Admit to L & D? IV access Monitoring per policy: continuous with epidural placement Candidate for analgesia of choice, will continue with epidural for pain management. Anesthesia in and gave bolus for better pain control and increased drip rate. Started augmentation with IV pitocin at 0830. Pitocin decreased to 6 for intolerance. Two IV fluid boluses given. Discussed IUPC with patient and spouse. Would be next option to verify strength of contractions and better allow us to increase or adjust pitocin. Continue to assist with repositioning to promote physiologic labor and . Anticipate I,?Yani Ennis APRN, SHANNON, was present for visit and have reviewed and agree with documentation by the Certified Nurse Midwifery Student.
[2024-11-28] MEDS: LIDOCAINE 2% (PF) 5 ML VIAL EPIDURAL (20:05)
--- NOTE | 2024-11-28 23:22 | W.PM.OBVAGDE ---
OB Procedure Vag Delivery Mother Details Mother Details: The patient is a 29 year-old, 3, now Para 1, admitted on 11/27/24 at 40 weeks 5 days gestation. Came in in spontaneous labor and water broke at 2200- clear fluid. Labor progressed slowly with augmentation. : 3 Para: 1 Weeks Gestation: 40 Admission Date: 11/27/24 Additional Details Amniotic Membrane Status: SROM Amniotic Membrane Rupture Date: 11/27/24 Amniotic Membrane Rupture Time: 22:00 Amniotic Membrane Fluid Description: Clear Analgesia/Anesthesia Type: Epidural Waterbirth: No Pitcoin: Yes Intrapartal Events: Labor Augmentation and ROM >18 Hours Delivery augmentation: pitocin Labor Onset: 13:52 Complete: 21:30 Pushin:22 Heart: heart tones during second stage were category 2. Delivery Details Delivery Date: 11/28/24 Delivery Time: 22:32 Route of delivery: Infant Gender: Female Infant Viability: Alive; Heart Rate Present Position at Delivery: OA Delivery Details: Patient was admitted for spontaneous labor with SROM of clear fluid on arrival to hospital at 2200. She progressed slowly and was augmented with Pitocin. Her active labor course was protracted with continued titration of pitocin and position changes were encouraged. Jazmin felt intense pressure and urge to push that became uncontrollable. Her epidural was adjusted to help with the pressure. After many attempts to progress dilation, small rim of cervix was palpated with head protruding through at +2 station. Aft was made to attempt massage and stretch cervix then push. After a few attempts of pushing, the cervix was no longer palpated. Patient was complete at 2130 and pushing at 2122. Jazmin pushed well in left tilt with guidance. She had excellent control in stretching tissue. of a viable female at 2232 in left tilt/semi-fowlers on the bed. vaginal delivery in OA and restituted to TEO. No nuchal cord or shoulder dystocia. Body delivered without problem and was placed on maternal abdomen.?Cord was clamped and cut after a 6 minute delay. stimulated and felt warm to touch. APGARS were 8 at one minute and 9 at five minutes respectively. Mouth was bulb suctioned. Intact placenta with a 3 vessel cord delivered spontaneously at 2243. Fundus firm. Small abrasion at perineum, repair not indicated. Two small periurethral abrasions. Cervix visible at introitus with laceration exam, briefly examined for tears or bleeding. Edematous but intact. QBL 500 cc. Mother and baby stable; mother plans to breastfeed. weight pending. I,?Yani Ennis, APPLICATION PACKAGER, CNM, was present for visit and have reviewed and agree with documentation by the Certified Nurse Midwifery Student. 1 Minute Interval Total Score: 8 5 Minute Interval Total Score: 9 Additional Details Shoulder Dystocia: No Placenta Delivery Time: 22:43 Placental Delivery Description: Spontaneous Procedure Done: Global Blood Loss: 500 Laceration: None Episiotomy Description: None Blood Loss Measurement Type: QBL Bakri Used: No Sponge/Need Count Correct: Yes (sponges not used) Cord Vessel Description: 3 Vessels Event Summary Status: Infant's temp was initially elevated but WNL within 30 minutes. Mother was stable after delivery. Anterior cervix is noted to be protruding into vagina and bruised. Will monitor bleeding closely, especially with gentle, supported fundal checks. Disposition: floor
[2024-11-29] VITALS (7 sets, daily range): BP systolic 98–109; BP diastolic 56–68; PULSE 78–97; RESP 16; TEMP 36.3–36.9; O2SAT 96–99
[2024-11-29 06:02] LABS: Hemoglobin* 13.5 gm/dL (12.0-16.0)
--- NOTE | 2024-11-29 08:52 | PM.OBPNVD1 ---
OB - PN:Subj Subjective Date Seen: 11/29/24 Narrative: Jazmin is a 29 y.o. G 3 P 1 who was admitted to L & D for spontaneous onset of labor. ?She had a NVD that was uncomplicated. The patient feels well. ?The pain is well controlled with current medications. ?She has no new complaints. ?She is breast feeding and reports things are going well. the patient has done well.? Vitals have been stable.? She has remained afebrile.? Has a good appetite, is tolerating a general diet. ?She is voiding without difficulty.? She is passing gas and has not had a bowel movement.? She is ambulating and denies any dizziness.? Has small amount of rubra lochia. Problems: none OB - PN: Obj Exam Physical Exam: Vital signs: Temp Pulse Resp BP Pulse Ox O2 Del Method 97.8 F 85 16 98/64 97 Room Air 11/29/24 07:47 11/29/24 07:47 11/29/24 07:47 11/29/24 07:47 11/29/24 07:47 11/29/24 07:47 Narrative: GENERAL APPEARANCE:? normal affect, alert, no distress MOOD:? appropriate CHEST:? clear to auscultation HEART:? regular rate and rhythm ABDOMEN:? soft, non-tender the uterine fundus is At Umbilicus, Midline and is appropriate for the stage of recovery. PERINEUM:? mild edema of the perineum EXTREMITIES:? normal and no edema OB - PN: Obj Data Labs Labs: Laboratory Results - last 24 hr 11/29/24 05:50 Hgb 13.5 OB - PN: A/P Delivery Assessment and Plan (1) care and examination immediately after delivery: Status: Acute (2) Lactating mother: Status: Acute (3) Subclinical hypothyroidism: Problem details: Started on TSH for fertility optimization; stop levo in Status: Acute Plan day: 1 Plan: routine care Comments: Routine care , may see if needed? Anticipate discharge home tomorrow
--- NOTE | 2024-11-30 03:42 | PM.ANPOST ---
Post Anesthesia Note Post Anesthesia Note Patient seen: Inpatient Respiratory Status: adequate Cardiovascular Status: adequate Mental Status: baseline Pain: adequate Temp: baseline Anesthetic awareness: N/A Complications: none Follow care: none
[2024-11-30 04:00] VITALS: BP 99/65; PULSE 86; RESP 16; TEMP 36.4; O2SAT 99
[2024-11-30 08:03] VITALS: BP 100/66; PULSE 71; RESP 16; TEMP 36.6; O2SAT 99
--- NOTE | 2024-11-30 08:03 | PM.OBDSVD1 ---
DS: Providers Provider Date Seen: 11/30/24 Date of admission: 11/27/24 23:14 Primary care physician: Not a Local Provider Admitting Clinician: Mo Lizarraga CNM Attending Physician on discharge: Mo Lizarraga CNM Date of Discharge: 11/30/24 DS: Diagnosis Discharge Diagnosis (1) care and examination immediately after delivery: Status: Acute (2) Lactating mother: Status: Acute Exam Narrative: Exam Narrative: VSS, afebrile GENERAL APPEARANCE: ?normal affect, alert, no distress MOOD: ?appropriate HEENT: normocephalic, neck supple, full ROM CHEST: ?Symmetrical chest wall movement. ?Normal respiratory effort. ?Clear to auscultation HEART: ?regular rate and rhythm ABDOMEN: ?soft, non-tender. Uterine fundus is firm, at Umbilicus, Midline and is appropriate for the stage of recovery. ?Bowel sounds present. PERINEUM: ?mild edema of the perineum, intact. EXTREMITIES: ?normal and no edema Const: Vital Signs, click to edit/add: Vital Signs - 24 hr 11/29/24 11:59 11/29/24 15:57 11/29/24 21:50 Temperature 97.4 F L 98.0 F 98.0 F Pulse Rate [Pulse Oximeter] 87 96 89 Respiratory Rate 16 16 16 Blood Pressure [Ri ght Arm] 102/67 98/61 109/68 Pulse Oximetry 99 96 96 Oxygen Delivery Me thod Room Air Room Air Room Air 11/30/24 04:00 Temperature 97.6 F Pulse Rate [Pulse Oximeter] 86 Respiratory Rate 16 Blood Pressure [Ri ght Arm] 99/65 Pulse Oximetry 99 Oxygen Delivery Me thod Room Air Documenting provider has reviewed patient's vital signs: yes OB - DS: Summary Hospital Course Hospital Course: Jazmin is a 29 y.o. who was admitted to L & D for labor. ?She had an uncomplicated NVD.?The patient feels well. ?The pain is well controlled with current medications. ?She has no new complaints. ?She is breast feeding and reports things are going well.? the patient has done well.? Vitals have been stable.? She has remained afebrile.? Has a good appetite, is tolerating a general diet. ?She is voiding without difficulty.? She is passing gas and has had a bowel movement.? She is ambulating and denies any dizziness.? Has Small amount of rubra lochia. ?She is planning condoms for prevention. Peripartum Data Infant delivery method: Vaginal Laceration description: None complications: none Infant Gender: Female Discharge Plan: Home Status at Discharge Functional status at discharge: independent ambulation Overall status at discharge: patient is progressing back to baseline Time Spent with Patient Time attestation: Total time spent providing and/or coordinating discharge services: Time spent: Less than 30 minutes Discharge Plan Discharge Disposition: Home, Self-Care Date of Admission: 11/27/24 23:14 Attending Provider on Discharge: Mo Lizarraga Primary Care Provider: Provider,Not a Local Condition: Stable Anticipated Discharge Date/Time: 11/30/24 12:00 Discharge Medications: New acetaminophen 500 mg Tablet 1,000 mg PO Q6H PRNQty: 0 0RF docusate sodium 100 mg Capsule 100 mg PO DAILY Qty: 90 0RF ibuprofen 600 mg Tablet 600 mg PO Q6H PRNQty: 60 0RF Continued DHA 200 mg capsule 200 mg PO DAILY omega-3 fatty acids 1,250 mg capsule 1,250 mg PO QDAY calcium-magnesium 750-465 mg tablet 1 tab PO DAILY cholecalciferol (vitamin D3) 125 mcg (5,000 unit) capsule 125 mcg PO QDAY magnesium glycinate 100 mg tablet 100 mg PO QDAY triamcinolone acetonide 0.1 % cream 1 applic topical BID PRN levothyroxine [Synthroid] 25 mcg tablet 25 mcg PO QDAY Qty: 90 0RF Discontinued aspirin 81 mg tablet,delayed release (DR/EC) 81 mg PO QDAY Discharge Orders: Discharge Order (Routine); Ordered 11/30/24 Ordered By: Mo Lizarraga Patient Education: OB Over the Counter Medication Information, OB Vaginal/Breast Feeding Additional Instructions: Discharge instructions were reviewed with the patient including signs and symptoms of infection and home going medications Nothing vaginally for 6 weeks: no tampons or intercourse Off Work or School for 6 weeks 2-week visit: discuss feeding concerns, review control options and screen for anxiety/depression. 6-week visit for an annual exam. consultation services are available to all mothers and babies for the first year after delivery.? To make an appointment, please call [phone]. Activity Level: Activity as Tolerated Discharge Diet: Regular Follow Up Appointments: [facility] [Provider Group] Forms: Patient Belongings, MyHealth Info Instructions
== END 2024-11-30 13:10 | disposition home or self-care (01) | DRG 807 ==
LOC: OB OUT 23:14 → OB 23:14
PROVIDERS: Advanced Practice Midwife; Admitting Provider Advanced Practice Midwife; Visit Provider Advanced Practice Midwife
DX: O48.0 Post-term pregnancy (principal); Z37.0 Single live birth; O99.284 Endocrine, nutritional and metabolic diseases complicating childbirth; E03.8 Other specified hypothyroidism; O99.214 Obesity complicating childbirth; E66.9 Obesity, unspecified; Z82.69 Family history of other diseases of the musculoskeletal system and connective tissue; Z3A.40 40 weeks gestation of pregnancy
CPT/HCPCS: 01967; 36415; 85018; 85025; 86592; 86850; 86900; 86901; 94761; J0665; J2795; J3010; J7120

== ENCOUNTER 2024-12-04 10:24 | Outpatient (CLI) | payer OTHER, SELFPAY ==
--- NOTE | 2024-12-04 10:30 | CRLHL7_ITS ---
For Patients: As a result of the Century Cures Act, medical imaging exams and procedure reports are released immediately into your electronic medical record. You may view this report before your referring provider. If you have questions, please contact your health care provider. CLINICAL HISTORY: hemorrhage TECHNIQUE: Real time, guadarrama scale images were acquired of the pelvis using a transabdominal approach. Color Doppler analysis was performed of the ovaries. Patient declined endovaginal technique. FINDINGS: The uterus measures 14.4 x 7.1 x 9.8 centimeters. Heterogeneous endometrium with echogenic material could represent blood products no increased vascularity seen. Hyperechoic lesion in the left superior fundus measuring 1.6 centimeters. Nonspecific possibly a fibroid. Ovaries are unremarkable. Right ovary measures 4.1 x 1.4 x 1.8 centimeters. Left ovary measures 3.9 x 1.8 x 3.4 centimeters. Normal blood flow to both ovaries. IMPRESSION: 1. Heterogeneous endometrium measuring 1.7 centimeters with echogenic material may represent blood products. Retained products of conception not completely excluded however no increased vascularity is seen. 2. Small echogenic focus In the left fundus nonspecific could be related to a fibroid. Dictated by Anna Tarango MD @ 12/07/2024 7:30:18 AM (Electronically Signed)
== END 2024-12-04 10:25 | disposition home or self-care (01) ==
LOC: US 10:24
PROVIDERS: Visit Provider Midwife
DX: O72.1 Other immediate postpartum hemorrhage (principal); R93.89 Abnormal findings on diagnostic imaging of other specified body structures; E03.8 Other specified hypothyroidism
CPT/HCPCS: 76856

== ENCOUNTER 2024-12-04 11:56 | Outpatient (CLI) | payer OTHER, SELFPAY | END 2024-12-04 11:57 | disposition home or self-care (01) | LOC: NFLDREF 11:57 | PROVIDERS: Visit Provider Midwife, Lay | DX: E03.8 Other specified hypothyroidism (principal) | CPT/HCPCS: 76856; 84443 ==

== ENCOUNTER 2024-12-07 14:24 | Outpatient (CLI) | payer OTHER, SELFPAY ==
--- NOTE | 2024-12-07 17:58 | W.PM.LAC.MC ---
Consult Note - Mom Date of Visit Date of visit: 12/07/24 Reason for consultation: Assistance Needed and Breast/Nipple Issue Visit Code: Visit Patient's Information Phone number: [phone] : 3 Allergies bacitracin (From Neosporin ([id number])) Allergy (Intermediate, Verified 12/04/24 11:26) Blister neomycin (From Neosporin ([id number])) Allergy (Intermediate, Verified 12/04/24 11:26) Blister polymyxin B (From Neosporin ([id number])) Allergy (Intermediate, Verified 12/04/24 11:26) Blister berries Allergy (Severe, Uncoded 12/04/24 11:26) Anaphylaxis Mother's Medical History: Medical History (Updated 12/05/24 @ 00:00 by Background Daemon) Acromioclavicular joint separation ?S43.109A - Unspecified dislocation of unspecified acromioclavicular joint, initial encounter (ICD-10) Tibia fracture ?S82.209A - Unspecified fracture of shaft of unspecified tibia, initial encounter for closed fracture (ICD-10) Concussion ?S06.0XAA - Concussion with loss of consciousness status unknown, initial encounter (ICD-10) 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, 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 Delivery Information Delivery type: Vaginal Gestational Age: 41 Gestational Weight For Age: AGA Weight: 3.555 kg Discharge Weight: 3.512 kg Percentage weight loss: 1.3 Baby's Information Baby's Age at Visit: 9 days Baby's Provider or Clinic: [facility] Jaundice: No Past Experience Past Experience: No Current Frequency of Day Feedings: every 2 hours Frequency of Night Feedings: every 3 hrs Both Breasts: No Latch: painful Goals: 1 year Pumping Pumping: Yes Quantity Pumped: getting 5-6 oz every 4 hours Supplementing EBM Supplement: Yes (taking 2 oz every 2-3 hours, sometimes a little more) Formula Supplement: No Baby Elimination Number of Wet Diapers a Day: ea feeding Number of BM a Day: 6 or more/day Breast/Nipple Condition Breast Information: Breasts are symmetrical with rounded lower quadrants, intramammary distance is less than 1.5 inches. No erythema. Nipples are supple, everted prior to feeding. Breast Shape: Round Engorgement: No Maternal Nipple Condition - Left: Common Nipple Maternal Nipple Condition - Right: Common Nipple Sore Nipples: Yes Interventions for Sore Nipples: Lansinoh/Nipple Cream Baby Assessment Skin: Normal Tongue/frenulum: Normal/elastic Palate: Average Lips: Relaxed and Symmetrical Jaw Alignment: Symmetrical Mucosa: [place], moist Onsite Observation Pre-Feed weight: 3.768 kg Post-Feed weight: 3.838 kg Milk Transferred (mL): 70 Position: Cross cradle and Football (attempted, baby would not latch) Attachment/latch-on achieved: Easily Suck pattern: Suck burst and normal rest Swallow: Audible, consistent and Gulping Behavior following feed: Alert, content Pre-Nursing Left Nipple: Within Normal Limits Pre-Nursing Right Nipple: Within Normal Limits Post-Nursing Left Nipple: Within Normal Limits Post-Nursing Right Nipple: Within Normal Limits Assessments/Interventions Assessments/Interventions: Babe latched to mom's RIGHT breast, latched in cross cradle after refusing to latch in football hold and stayed nursing for 15 minutes. Mom reported no pain with this latch, Transferred 38 ml of milk Babe then latched to mom's LEFT breast, latched in cross cradle again and nursed for another 10 minutes. Transferred 32 ml of milk. Total milk transferred: 70 ml Babe needed gentle support to stay latched. Worked with mom/taught asymmetrical latch technique for a wide, deep latch and mom reports increased comfort with this. Was relieved how not painful this latch was. Discussed normals of ; milk coming in, regulation of supply, use of pump to relieve fullness if needed, but not to pump every feeding if not needed to prevent over supply. MOm able to latch baby to both breasts equally well independently with coaching on wide, deep latch for mom's comfort but also baby's milk transfer. Nipple care reviewed as well. Education provided: Early feeding cues to maximize timing of latching, Asymmetric latch technique for wide/deep latch to increase milk, Transfer for baby and increase comfort for mom, Supply/demand nature of milk supply, Need for frequent stimulation/milk removal, Sore nipple treatment options, Pumping for milk management (as needed for fullness, or as desired for bottle feedings) and Milk collection, storage Time Spent Time spent with patient (min): 60 Meds Home Medications and Allergies Home Medications ?Medication ?Instructions ?Recorded ?Confirmed ?Type docosahexaenoic acid 200 mg 200 mg PO DAILY 08/06/23 12/04/24 History capsule ( DHA) calcium-magnesium 750 mg-465 mg 1 tab PO DAILY 04/10/24 12/04/24 History tablet cholecalciferol (vitamin D3) 125 125 mcg PO QDAY 04/10/24 12/04/24 History mcg (5,000 unit) capsule omega-3 fatty acids 1,250 mg 1,250 mg PO QDAY 04/10/24 12/04/24 History capsule levothyroxine 25 mcg tablet 25 mcg PO QDAY #90 tabs 08/31/24 12/04/24 Rx (Synthroid) magnesium glycinate 100 mg (as 100 mg PO QDAY 09/25/24 12/04/24 History glycinate) tablet docusate sodium 100 mg capsule 100 mg PO DAILY #90 caps 11/30/24 12/04/24 Rx Allergies Allergy/AdvReac Type Severity Reaction Status Date / Time bacitracin (From Neosporin Allergy Intermediate Blister Verified 12/04/24 11:26 ([id number])) neomycin (From Neosporin Allergy Intermediate Blister Verified 12/04/24 11:26 ([id number])) polymyxin B (From Neosporin Allergy Intermediate Blister Verified 12/04/24 11:26 ([id number])) berries Allergy Severe Anaphylaxis Uncoded 12/04/24 11:26
== END 2024-12-07 14:25 | disposition home or self-care (01) ==
LOC: OB LAC 14:25
PROVIDERS: Visit Provider Advanced Practice Midwife
DX: Z39.1 Encounter for care and examination of lactating mother (principal)
CPT/HCPCS: G0463

== ENCOUNTER 2025-01-04 13:26 | Outpatient (CLI) | payer OTHER, SELFPAY ==
[2025-01-07 05:12] LABS: HPV Source Cervical
[2025-01-07 13:27] LABS: HPV Genotype 16 by TMA Not Detected; HPV Genotype 18/45 by TMA Not Detected
[2025-01-12 09:17] LABS: Pap Test Digital Imaging Done; Pap Test Reviewed by Pathologi Done
== END 2025-01-04 13:27 | disposition home or self-care (01) ==
PROVIDERS: Visit Provider Advanced Practice Midwife
DX: Z12.4 Encounter for screening for malignant neoplasm of cervix (principal); E03.8 Other specified hypothyroidism
CPT/HCPCS: 84443; 87624; 87625; 88141; 88142; 88175